=== PATIENT | female | born 1980 | race Caucasian/White ===

== ENCOUNTER 2025-05-02 14:08 | Emergency (ER) | payer OTHER, SELFPAY ==
[2025-05-02 14:11] VITALS: BP 129/93; PULSE 79; RESP 16; TEMP 36.5; O2SAT 100; BMI 27.8
[2025-05-02 14:44] LABS: Hematocrit 42.6 % (37-47); Hemoglobin 14.5 g/dL (12.0-15.0); Immature Granulocytes Count 0.010 X10^3/uL (0.0-0.0); Mean Corp Hgb Conc 34.0 g/dL (32-36); Mean Corpuscular Volume 86.1 fL (81-99); Mean Platelet Vol. 9.4 fl (6.2-12.0); NRBC Flagged by Analyzer 0 % (0-5); Platelet Count 278 K/mm3 (150-450); RBC Distribution Width CV 13.1 % (11.6-14.6); RBC Distribution Width SD 40.3 fl (35.1-43.9); Red Blood Count 4.95 M/mm3 (4.2-5.4); White Blood Count 6.6 K/mm3 (4.4-11.0)
[2025-05-02 14:56] LABS: Internal QC Validated? YES +Cl - CLEAR BKGD; Pregnancy, Serum, hCG Quali. NEGATIVE Negative; Record Kit Lot#, Serum Preg. 0000980607
[2025-05-02 15:11] LABS: Color, Urine Yellow (Yellow); Glucose, Dipstick Normal (Normal); Ketone-Dipstick 5 mg/dl (Negative); Leukocyte Esterase-Dipstick 25 /ul (Negative); Nitrite-Dipstick Negative (Negative); Occult Blood-Urine 10 /ul (Negative); Protein-Dipstick 30 mg/dl (Negative); Specific Gravity, Urine 1.020 (1.002-1.030); Urine Bilirubin Dipstick Negative (Negative)
--- NOTE | 2025-05-02 15:12 | EDS_ITS ---
HPI HPI - GI History of Present Illness Chief Complaint: Abd Pain Narrative Narrative: 44-year old female who denies significant past medical history except depression and anxiety presents with right lower quadrant abdominal pain that she has had since yesterday. 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 She denies fevers or chills, positive nausea but no vomiting. No dysuria or hematuria, no problems with bowel movements, no diarrhea. Somewhat worse with movement. Denies other exacerbating or alleviating factors. She states she noticed it more when she tried to sit up yesterday. Denies prior abdominal surgeries. [facility] Medical History ADHD Insomnia Anxiety Depression Home Medications Medication Instructions Recorded Last Taken Type citalopram 20 mg tablet 20 mg PO DAILY 04/03/1503/19 History drospirenone 3 mg-ethinyl 1 ea PO DAILY 04/03/1504/02 History estradiol 0.03 mg tablet lisdexamfetamine 50 mg capsule PO 30 days #30 caps 06/05 Unknown History Allergy/AdvReac Type Severity Reaction Status Date / Time Penicillins Allergy Rash Verified 05/02/25 14:13 Sulfa (Sulfonamide AdvReac Vomiting Verified 05/02/25 14:13 Antibiotics) Social History Smoking Status: Never smoker alcohol intake: never ROS ROS ED ROS Narrative Review of systems positive for right lower quadrant abdominal pain worse with movement. No fevers or chills. Positive nausea but no vomiting. No diarrhea, no problems with bowel movements. No dysuria or hematuria. No vaginal bleeding. EXAM Physical Exam Narrative Exam Narrative: Afebrile. Vital signs noted. Nontoxic-appearing. Cardiovascular examination feels a regular rate and rhythm. Lungs are clear to auscultation bilaterally. The abdomen is soft with mild tenderness to palpation of the right lower quadrant more over McBurney's point. No guarding or rebound. Questionable Rovsing sign. More pain in periumbilical area as well with palpation of the left lower quadrant. Neurological examination nonfocal, nonlateralizing. Const Vital Signs: 05/02/25 14:11 05/02/25 16:09 05/02/25 16:19 Temperature 97.7 F L 98.2 F Temperature Source Temporal Oral Pulse Rate 79 79 81 Respiratory Rate 16 14 12 Blood Pressure 129/93 H 116/66 125/77 H Blood Pressure Mean 105 82 93 Pulse Ox 100 100 100 Oxygen Delivery Method Room Air Room Air Room Air 05/02/25 17:00 05/02/25 20:00 Temperature Temperature Source Pulse Rate 74 70 Respiratory Rate 14 16 Blood Pressure 126/82 H 125/71 H Blood Pressure Mean 96 89 Pulse Ox 98 100 Oxygen Delivery Method Room Air Room Air MDM MDM MDM Narrative Medical decision making narrative: The differential diagnosis includes but not limited to acute appendicitis versus ovarian pathology such as ovarian cyst rupture versus diverticulitis/colitis versus cystitis versus ureterolithiasis. History and physical does not favor the latter 2 diagnoses. Additionally, she is not having any bowel symptoms consistent with diverticulitis/colitis. Comprehensive workup was pursued. I reviewed her laboratory work and she has normal white count of 6.6 with hemoglobin 14.5, hematocrit 42.6, platelet count normal at 278. CMP is grossly unremarkable with a normal sodium, normal potassium, AST, ALT, and alk phos normal with total bilirubin 0.45. Lipase normal at 44 so I doubt pancreatitis. Serum test is negative. Urinalysis shows 0-5 WBCs. I do not feel antibiotics are indicated. I reviewed the radiology report of the CT of the abdomen and pelvis. While the appendix was not definitively visualized, there are no surrounding areas of inflammation concerning for an acute appendicitis. Given that she has no fever or white count, I do not feel clinically she has an acute appendicitis. However, it also stated that right ovary was not well-visualized and that there is free fluid in the pelvis right greater than left. Radiology recommended transvaginal ultrasound. Upon repeat examination, she states that her pain has improved after analgesia. I discussed with her obtaining a transvaginal ultrasound and she and her agree in order to rule out ovarian torsion as a cause of her pain. Ultrasound was obtained and radiology report reviewed. I reviewed the radiology report and did comment on a tubular structure adjacent to the right ovary. It could be a loop of bowel versus pyosalpinx versus hematosalpinx. Upon repeat examination, she is resting comfortably on the cot. At this point in time, I do feel that she can follow-up and be discharged. She and her are motivated for discharge. She does not see an IRRIGATION EQUIPMENT MECHANIC so she was referred to IRRIGATION EQUIPMENT MECHANIC on-call. She states that her primary care provider does do female health as well. She was told that she should have follow-up imaging as recommended by radiology in the next 5 days to 1 week. Return instructions to the emergency department were reviewed. Disposition is discharged home in stable condition. History & Record Review Discussion w/independent historian: Patient Additional record(s) reviewed:: Prior ED visit (No prior ED visits) Lab Data Attestation: I reviewed the patient's lab results. Labs: Laboratory Results - last 24 hr 05/02/25 05/02/25 14:27 14:59 WBC 6.6 RBC 4.95 Hgb 14.5 Hct 42.6 MCV 86.1 MCH 29.3 MCHC 34.0 RDW Std Deviation 40.3 RDW Coeff of Fabrice 13.1 Plt Count 278 MPV 9.4 Immature Gran % (Auto) 0.200 Neut % (Auto) 61.2 Lymph % (Auto) 28.4 Carbon % (Auto) 5.6 Eos % (Auto) 3.8 Baso % (Auto) 0.8 Absolute Neuts (auto) 4.1 Absolute Lymphs (auto) 1.88 Nucleated RBC % 0 Sodium 138 Potassium 3.7 Chloride 106 Carbon Dioxide 22.6 Anion Gap 10 BUN 7 Creatinine 0.70 Estim Creat Clear Calc 100.73 Est GFR (MDRD) Non-Af 109 BUN/Creatinine Ratio 10.4 Glucose 99 Calcium 9.3 Total Bilirubin 0.45 AST 15 ALT 10 Alkaline Phosphatase 61 Total Protein 6.9 Albumin 4.4 Globulin 2.5 Albumin/Globulin Ratio 1.8 Lipase 44 Serum , Qual NEGATIVE Urine Color Yellow Urine Clarity Sl. Cloudy Urine pH 6.0 Ur Specific [place] 1.020 Urine Protein 30 H Urine Glucose (UA) Normal Urine Ketones 5 H Urine Occult Blood 10 H Urine Nitrite Negative Urine Bilirubin Negative Urine Urobilinogen Normal Ur Leukocyte Esterase 25 H Urine RBC 0-5 SEEN Urine WBC 0-5 SEEN Ur Squamous Epith Cells 0-5 SEEN Urine Bacteria 2+ Urine Mucus 1+ Radiography Diagnostic Testing: Clinical Impression(s) from Imaging Studies Abdomen/Pelvis CT 05/02/25 15:25 IMPRESSION: 1. Appendix not definitively seen. No definite secondary CT signs to suggest acute appendicitis. 2. Poorly visualized right ovary with [id number]-[id number]-[id number]-left pelvic fluid, which may be physiologic. If clinically warranted, consider a pelvic ultrasound to further evaluate. Reading Location: [facility] [place][NOTE 3] Transvaginal US 05/02/25 16:26 IMPRESSION: Tubular structure containing complex fluid adjacent to the right ovary. This could represent a loop of bowel or pyo/hematosalpinx. Follow-up imaging is recommended. Reading Location: [facility] [place][NOTE 3] Discharge Plan Triage Chief Complaint: Abd Pain ED Provider: Jm Garcia Dx/Rx/DC Orders Clinical Impression: Right lower quadrant abdominal pain, Free fluid in pelvis, Pelvic pain Instructions: ED Abdominal Pain Unkn Cause Fem, ED Pelvic Pain, Unknown Cause Prescriptions: No Action lisdexamfetamine 50 mg capsule PO 30 Days Qty: 30 Patient Comments: TAKE 1 CAPSULE BY MOUTH EACH MORNING citalopram 20 MG tablet 20 mg PO DAILY drospirenone-ethinyl estradiol 1 EACH tablet 1 ea PO DAILY Primary Care Provider: Lilia Painter Referrals: Nava Singh MD [Med Staff - Active Staff, Obstetrics-Gynecology (OBGYN)] - 3-5 Days Lilia Painter DO [Primary Care Provider, Family Practice] - 1 Week Activity Restrictions/Additional Instructions: Follow-up with IRRIGATION EQUIPMENT MECHANIC in 3 to 5 days for repeat imaging/ultrasound of the pelvis. Return to the emergency department with fever, increased pain, new or worsening symptoms. Print Language: [place]se Disposition Disposition: Home, Self Care D/C Safety Score for UGIB Assessment [place]-Blatchford Bleeding Score (GBS): Stratifies upper GI bleeding patients who are "low-risk" and candidates for outpatient management. Hemoglobin, BUN, Recent Vital Signs: Hgb 14.5 g/dL (12.0-15.0) 05/02/25 14:27 BUN 7 mg/dL (4-19) 05/02/25 14:27 Pulse Rate 70 Blood Pressure 125/71 Score Interpretation: Score of 0: A GBS of 0 is a “Low Risk” GI bleed, and is highly sensitive (99.6% in a 2007 retrospective study) for predicting which patients did not require any “medical intervention”: blood transfusion, endoscopy, or surgery. This was confirmed in a 2009 Lancet study where patients with a score of 0 were actually discharged and had no GI bleeding mortality at 6 month followup Score above 0: A GBS greater than zero suggests a “High Risk” GI bleed that is likely to require “medical intervention”: transfusion, endoscopy, or surgery. A higher GBS also correlated with a higher likelihood of needing intervention Scores >/= 6 are associated with >50% risk of needing intervention D/C Safety Score for LGIB Assessment Assessment Tool: Readmission and adverse event risk in patients with acute lower GI bleeding. Hemoglobin and Recent Vital Signs: Hgb 14.5 g/dL (12.0-15.0) 05/02/25 14:27 Pulse Rate 70 05/02/25 20:00 Blood Pressure 125/71 05/02/25 20:00 Score Interpretation: Probability Percentage of safe discharge (absence of rebleeding, blood transfusion, therapeutic intervention, 28 day readmission, or ) Score of 8 or below: Consider discharge, with appropriate precautions. Score of 9 or above: Discharge NOT recommended. Consider admission with further workup and resuscitation as necessary.
[2025-05-02 15:19] LABS: AST(SGOT) 15 U/L (<=31); Alanine Aminotransfer ALT/SGPT 10 U/L (<=34); Albumin, Serum 4.4 g/dL (3.5-5.0); Alkaline Phosphatase 61 U/L (35-104); Anion Gap 10 (5-15); BUN 7 mg/dL (4-19); BUN/Creat Ratio 10.4 RATIO (10-20); Calcium,Total 9.3 mg/dL (7.6-11.0); Carbon Dioxide 22.6 mmol/L (21.0-32.0); Chloride 106 mmol/L (98-108); Estimated Creatinine Clearance 100.73 ml/min (50-250); Globulin 2.5 g/dL (2.2-4.2); Glucose 99 mg/dL (70-99); Lipase 44 U/L (13-75); Potassium 3.7 mmol/L (3.3-5.1)
[2025-05-02] MEDS: 0.9% Normal Saline (1000mL) 1,000 ML 999 ML IV (15:19)
[2025-05-02 15:23] LABS: Mucous, Urine 1+ /hpf (<or=2+); Red Blood Cells-Urine 0-5 SEEN /hpf (0-5); Squamous Epithelial Cells - UA 0-5 SEEN /hpf (5-10)
--- NOTE | 2025-05-02 15:25 | CT_ITS ---
PROCEDURE: ABDOMEN/PELVIS W IV CONT ONLY 05/02/2025 REASON FOR EXAM: RIGHT LOWER QUADRANT PAIN TECHNIQUE: Procedure Code: [id number] Modality: CT Procedure: ABDOMEN/PELVIS W IV CONT ONLY Coronal and Sagittal reconstruction series were provided. CONTRAST: Isovue 370 VOLUME: 100 mL One or more dose reduction techniques were used (e.g., Automated exposure control, adjustment of the mA and/or kV according to patient size, use of iterative reconstruction technique. RADIATION DOSE SUMMARY: CTDlvol: 9.97, 10.0 mGy DLP: 513 mGycm COMPARISON: None. FINDINGS: LIMITATIONS: The study is limited by motion artifact. LUNG BASES: No basilar airspace consolidation or pleural effusion. LIVER: Unremarkable. GALLBLADDER: Unremarkable. No calcified stone. BILE DUCTS: No ductal dilation. PANCREAS: Unremarkable. SPLEEN: Unremarkable. ADRENAL GLANDS: Unremarkable. KIDNEYS: The kidneys enhance symmetrically. No hydronephrosis or hydroureter. Exophytic 0.9 cm hypodense posterior left renal lesion, likely a cyst. STOMACH AND BOWEL: Small hiatal hernia. No obstruction or perforation. No wall thickening. No CT evidence of colitis or acute diverticulitis. APPENDIX: The appendix is not definitively seen. RETRO/PERITONEUM: Minimal pelvic fluid, greater on the right, possibly physiologic. No free air or fluid collections. LYMPH NODES: No lymphadenopathy. PELVIC ORGANS: The right ovary is not well evaluated due to multiple adjacent unopacified bowel loops. Unremarkable decompressed urinary bladder and uterus. Irregular rim hyperdense 1.3 cm cystic lesion in the left ovary, likely a corpus luteum. VASCULATURE: No aortic aneurysm. ABDOMINAL WALL AND SOFT TISSUES: Unremarkable. BONES: No fracture or suspicious osseous abnormality. CT/Abdomen/Pelvis W IV Cont ONLY IMPRESSION: 1. Appendix not definitively seen. No definite secondary CT signs to suggest acute appendicitis. 2. Poorly visualized right ovary with qldif-[id number]-fwdv-left pelvic fluid, wh ich may be physiologic. If clinically warranted, consider a pelvic ultrasound to further evaluate. Reading Location: [facility]
[2025-05-02 16:09] VITALS: BP 116/66; PULSE 79; RESP 14; O2SAT 100
[2025-05-02 16:19] VITALS: BP 125/77; PULSE 81; RESP 12; TEMP 36.8; O2SAT 100
--- NOTE | 2025-05-02 16:26 | US_ITS ---
PROCEDURE: TRANSVAGINAL NON- 05/02/2025 REASON FOR EXAM: RIGHT LOWER QUADRANT PAIN TECHNIQUE: Procedure Code: USTVAG Modality: US Procedure: TRANSVAGINAL NON- COMPARISON: CT Abdomen and Pelvis w/Contrast, 05/02/2025 FINDINGS: ENDOMETRIUM: Homogeneous. Normal thickness of 6.0 mm. No abnormal endometrial color Doppler flow. UTERUS: Anteverted/anteflexed. Normal size and contour measuring 8.5 x 5.7 x 4.7 cm. No fibroid detected. CERVIX: Normal size and contour. Cervical nabothian cyst noted. RIGHT OVARY: Normal size and appearance measuring 2.1 x 1.8 x 1.2 cm (volume 2.5 mL). Normal follicles. Normal blood flow. Tubular structure adjacent to the right ovary containing complex fluid measuring approximately 0.8 x 1.7 cm. LEFT OVARY: Ultrasound measurement of 4.7 x 2.5 x 2.9 cm (volume 18.1 mL), approximately 6.7 mL volume on the earlier CT. Thick-walled 1.7 x 1.6 x 1.6 cm cystic structure, likely a corpus luteum, which was also seen on the earlier CT. Normal follicles. Normal blood flow. No adnexal mass. FREE FLUID: Mild free fluid in the right adnexa and cul-de-sac. US/Transvaginal Non- IMPRESSION: Tubular structure containing complex fluid adjacent to the right ovary. This c ould represent a loop of bowel or pyo/hematosalpinx. Follow-up imaging is recommended. Reading Location: [id number]
[2025-05-02 17:00] VITALS: BP 126/82; PULSE 74; RESP 14; O2SAT 98
--- NOTE | 2025-05-02 18:53 | ED.RN ---
RADIOLOGY CALLED FOR OUTSTANDING IMAGING RESULTS. RESPONSE "IT IS NOT IN DICTATION"
[2025-05-02 20:00] VITALS: BP 125/71; PULSE 70; RESP 16; O2SAT 100
[2025-05-02 21:22] VITALS: BP 127/80; PULSE 77; RESP 16; TEMP 36.8; O2SAT 100
== END 2025-05-02 21:27 | disposition home or self-care (01) ==
PROVIDERS: Emergency Provider Emergency Medicine; PCP Family Medicine; Visit Provider Emergency Medicine
DX: R10.31 Right lower quadrant pain (principal); R10.20 Pelvic and perineal pain unspecified side; R18.8 Other ascites; F32.A Depression, unspecified; Z79.899 Other long term (current) drug therapy
CPT/HCPCS: 74177; 76830; 80053; 81001; 83690; 84703; 85025; 93976; 96361; 96374; 96375; 99284; Q9967; A4216; J2405